=== PATIENT | male | born 1960 ===

== ENCOUNTER 2018-06-19 09:27 | Emergency (ER) | payer OTHER ==
[2018-06-19 09:30] VITALS: BMI 31.4
[2018-06-19 09:32] VITALS: O2SAT 99
--- NOTE | 2018-06-19 10:51 | ED PDOC ---
HPI: Trauma/Fall - HPI Time Seen by Provider: 06/19/18 09:48 Chief Complaint (Nursing): Rib Injury Chief Complaint (Provider): Rib Injury History Per: Patient History/Exam Limitations: no limitations Onset/Duration Of Symptoms: Days (4) Location Of Injury: Left: Chest (Ribs) Associated Symptoms: denies: Dizziness Additional Complaint(s): 57 years old male with history of diabetes, hypertension and high cholesterol presents to the ED for evaluation of constant severe left rib pain since Friday. Patient reports he was carrying a heavy load of boxes upstairs when he lost his balance and fell on iron railing. He states the fall was mechanical and pain worsens with deep inspiration and any movement. Patient reports he has to lie on right side and he is afraid to cough because of worsening of pain. He denies any nausea, vomiting, trauma, any other injury, dizziness before and after fall, hematuria or hemoptysis. PMD: [facility] Past Medical History Vital Signs: Last Vital Signs Temp 97.8 F 06/19/18 15:49 Pulse 61 06/19/18 15:49 Resp 17 06/19/18 15:49 BP 112/70 06/19/18 15:49 Pulse Ox 99 06/19/18 15:49 - Medical History PMH: Diabetes, HTN, Hypercholesterolemia - Surgical History Surgical History: No Surg Hx - Family History Family History: States: Unknown Family Hx - Social History Current smoker - smoking cessation education provided: No Alcohol: None Drugs: Denies - Home Medications Home Medications: Ambulatory Orders Medication Instructions Recorded Ibuprofen [Motrin Tab] 800 mg PO Q6 #28 tab 06/19/18 oxyCODONE/Acetaminophen [Percocet 1 ea PO Q6 PRN #20 tab 06/19/18 5/325 mg Tab] - Allergies Allergies/Adverse Reactions: Allergies Allergy/AdvReac Type Severity Reaction Status Date / Time No Known Allergies Allergy Verified 06/19/18 09:44 Review of Systems ROS Statement: Except As Marked, All Systems Reviewed And Found Negative Respiratory: Negative for: Hemoptysis Gastrointestinal: Negative for: Nausea, Vomiting Genitourinary Male: Negative for: Hematuria Musculoskeletal: Positive for: Other (Left sided rib pain) Neurological: Negative for: Dizziness (before or after fall) Physical Exam - Reviewed Nursing Documentation Reviewed: Yes Vital Signs Reviewed: Yes - Physical Exam Appears: Positive for: Non-toxic, No Acute Distress Head Exam: Positive for: ATRAUMATIC, NORMOCEPHALIC Cardiovascular/Chest: Positive for: Regular Rate, Rhythm, Other (Tenderness on palpation from 4th through 7th rib on the anterior and mid axillary aspect of left chest. Breath is clear but worsens with inspiration.). Negative for: Murmur Respiratory: Positive for: Normal Breath Sounds. Negative for: Respiratory Distress Gastrointestinal/Abdominal: Positive for: Normal Exam, Soft. Negative for: Tenderness Extremity: Positive for: Normal ROM. Negative for: Tenderness, Swelling Neurologic/Psych: Positive for: Alert, Oriented (x3) - ECG O2 Sat by Pulse Oximetry: 99 (RA) Pulse Ox Interpretation: Normal Medical Decision Making Medical Decision Making: Time: 1005 Assess/Plan: --Left Rib and PA Chest X-Ray --Give Toradol for pain 1448 Ribs X-Ray FINDINGS: LEFT RIBS: Questionable artifact versus minimally displaced fractures of the left anterolateral 6th, 7th 8th and 9th ribs LUNGS: Minor bibasilar atelectasis. PLEURA: No evidence of pneumothorax or pleural effusion. CARDIOVASCULAR: Normal sized heart. No pulmonary vascular congestion. OTHER FINDINGS: None. IMPRESSION: Questionable artifact versus minimally displaced fractures of the left anterolateral 6th and 9th ribs. Minor bibasilar atelectasis. No evidence of pneumothorax 1507 --X-ray reviewed and shows minimally displaced fracture. --Patient reports improvement of pain, is medically stable, and requires no further treatment in the ED at this time. Patient will be discharged home with Rx for Percocet. Spirometer instructions discussed with patient. Counseling was provided and all questions were answered regarding diagnosis and need for follow up with PMD in 2 days. There is agreement to discharge plan. Return if symptoms persist or worsen. Scribe Attestation: Documented by Sheri Krishnamurthy, acting as a scribe for FALGUNI Mena. Provider Scribe Attestation: All medical record entries made by the Scribe were at my direction and personally dictated by me. I have reviewed the chart and agree that the record accurately reflects my personal performance of the history, physical exam, medical decision making, and the department course for this patient. I have also personally directed, reviewed, and agree with the discharge instructions and disposition. Disposition - Clinical Impression Clinical Impression: Rib fracture - Disposition Referrals: Tommy Wade [Outside] Disposition: Routine/Home Disposition Time: 15:07 Condition: IMPROVED Additional Instructions: Use spirometer as explained to prevent lung infection. Take Percocet as needed for severe pain. Take Motrin for mild pain. If you are taking Percocet, do not drive a car or operate machinery. Follow up with your primary medical doctor in 2-4 days for follow up care. If you develop trouble breathing, worsened pain , fever, cough, or other new symptoms. Return to the emergency department immediately. Prescriptions: Ibuprofen [Motrin Tab] 800 mg PO Q6 #28 tab oxyCODONE/Acetaminophen [Percocet 5/325 mg Tab] 1 ea PO Q6 PRN #20 tab PRN Reason: Pain, Severe (8-10) Forms: [employer] (Thai), [employer] (Bengali) Print Language: TAJIK
--- NOTE | 2018-06-19 14:50 | RAD ---
Date of service: 06/19/2018 PROCEDURE: Radiographs of the Chest and Left Ribs. HISTORY: left rib pain s/p trauma COMPARISON: None available. TECHNIQUE: Frontal radiograph of the chest and multiple oblique radiographs of the left ribs were obtained. FINDINGS: LEFT RIBS: Questionable artifact versus minimally displaced fractures of the left anterolateral 6th, 7th 8th and 9th ribs LUNGS: Minor bibasilar atelectasis. PLEURA: No evidence of pneumothorax or pleural effusion. CARDIOVASCULAR: Normal sized heart. No pulmonary vascular congestion. OTHER FINDINGS: None. IMPRESSION: Questionable artifact versus minimally displaced fractures of the left anterolateral 6th and 9th ribs. Minor bibasilar atelectasis. No evidence of pneumothorax
[2018-06-19 15:56] VITALS: BP 112/70; PULSE 61; RESP 17; TEMP 97.8
== END 2018-06-19 16:00 | disposition home or self-care (01) ==
LOC: H.ER 09:27
DX: S22.32XA Fracture of one rib, left side, initial encounter for closed fracture (principal); W22.8XXA Striking against or struck by other objects, initial encounter; Y92.89 Other specified places as the place of occurrence of the external cause; E11.9 Type 2 diabetes mellitus without complications; E78.00 Pure hypercholesterolemia, unspecified; I10 Essential (primary) hypertension